=== PATIENT | female | born 2000 | race Caucasian/White ===

== ENCOUNTER 2025-07-27 14:19 | Inpatient (IN) ==
[2025-07-27 16:46] LABS: Protein Creatinine Ratio Urine 0.4 (0-0.2); Total Protein Urine Random 13.0 mg/dl (0-11.9)
--- NOTE | 2025-07-27 16:53 | History & Physical Report ---
Date of Service July 27, 2025 Assessment & Plan (1) Hypertension affecting in third trimester: (2) tachycardia affecting management of mother: Plan Patient is a 25yo who presented from office for prolonged monitoring for tachycardia at 39w0d. -FHT reassuring but noted to have persistent mild range blood pressures in triage -HELLP labs notable for elevated uric acid; P/C ratio 0.4 -Discussed concern for mild preeclampsia developing with mild range pressures and proteinuria, recommended admission to L&D for induction at this time since she is 39w0d with these findings -GBS in urine - will treat with vancomycin since has hives reaction to PCNs -RH pos, Rubella immune -Salgado balloon placed wth cvx 1.5/60/-2, will start pitocin 2x2 up to [address] -Epidural PRN -AROM when able -GDM- check BG q4 hours in latent labor History of Present Illness Chief Complaint: tachycardia Primary Care Provider: Neri Russell MD Patient is a 25yo who presented from the office for prolonged monitoring for tachycardia at 39w0d. Patient is feeling normal movement. She denies preeclampsia symptoms but notes increased swelling over past couple of weeks. Denies blood pressure concerns during this . She is feeling intermittent contractions. Scheduled for IOL 08/01. Allergies Allergy/AdvReac Type Severity Reaction Status Date / Time amoxicillin Allergy Intermediate Hives Verified 07/27/25 13:02 Home Medications Medication Instructions Recorded Confirmed Type albuterol sulfate inhalation Q4 PRN SOB 02/01/25 07/27/25 History 21-iron fu-folic acid 1 tab PO DAILY 02/01/25 07/27/25 History [ Complete] ondansetron 4 mg disintegrating 4 mg PO DAILY #30 tabs 03/08/25 07/27/25 Rx tablet acetone (urine) test (Ketone Urine #50 ea 05/29/25 07/27/25 Rx Test strips) blood sugar diagnostic (Accu-Chek #150 ea 05/29/25 07/27/25 Rx Guide test strips) blood-glucose meter (Accu-Chek #1 ea 05/29/25 07/27/25 Rx Guide Glucose Meter) lancets (Accu-Chek Softclix #150 ea 09/15/25 11/13/25 Rx Lancets) pen needle, diabetic 32 gauge x #50 ea 06/23/25 07/27/25 Rx /32" aspirin 81 mg chewable tablet 81 mg PO DAILY 07/27/25 07/27/25 History insulin NPH isoph U-100 human 100 15 unit subcut QPM 07/27/25 07/27/25 History unit/mL (3 mL) subcutaneous pen (Novolin N FlexPen) Patient History Medical History Varicella vaccination Plantar wart Asthma Surgical History S/P surgical removal of pilonidal cyst S/P tonsillectomy S/P wisdom tooth extraction Family History (Updated 02/01/25 @ 08:58 by Celina Szymanski) Family/Other Breast cancer first cousin Grandmother (Maternal) Stroke Grandfather (Maternal) Myocardial infarction Grandmother (Paternal) Duodenal cancer Grandfather (Paternal) Cancer Denies family history of Ovarian cancer Colorectal cancer Social History (Updated 02/01/25 @ 09:00 by Celina Szymanski) Smoking Status: Never smoker Tobacco Type: Cigarettes Second Hand Exposure: No; Do You Dip or Chew Tobacco: No; Hx Alcohol Use: No Hx Substance Use: No Preferred Language: Bengali Beliefs That Will Affect Care: None marital status: Single marital status details: hero Soni (24) [phone] Current Living Situation: Family Current Living Situation Comment: lives with mother and fiance current occupational status: employed current occupation: [employer] Other Information That Helps Us Care for You: No Feels Safe at Home: Yes Safety Concerns: Feels Safe At This Time Assistive Devices: None Review of Systems All systems reviewed & are unremarkable except as noted in HPI & below Physical Exam Constitutional: WD/WN, vitals as above Respiratory: normal respiratory effort Gastrointestinal (Abdomen): gravid uterus Psychiatric: Orientation: alert and oriented x 3 Genitourinary: Manual OB Exam: + cervical dilation 1 cm (1.5), + cervical effacement 60% and + station -2 OB Exam Monitor Tracing: + external FHT mon itor used, + external uterine monitor used (contractions q2-5 minutes) and + category I (Reactive and reassuring) Salgado balloon inserted in normal sterile fashion with cervical check above, with inflation of balloon with 40cc fluid. Pt tolerated well. Results & Data Vital Signs (Past 12 Hours) Vital Signs Temp Pulse Resp BP 07/27/25 16:20 83 146/83 H 07/27/25 16:04 75 134/81 07/27/25 15:49 75 138/87 07/27/25 15:35 89 148/83 H 07/27/25 15:19 78 156/85 H 07/27/25 14:40 36.9 C 16 07/27/25 14:33 96 H 142/83 H 07/27/25 14:27 100 H 187/94 H Laboratory Results Laboratory Results - last 24 hr 07/27/25 07/27/25 16:11 16:47 WBC 14.38 H RBC 4.45 Hgb 13.2 Hct 39.1 MCV 87.9 MCH 29.7 MCHC 33.8 RDW Std Deviation 48.5 H RDW Coeff of Behzad 15.4 H Plt Count 200 MPV 11.1 Immature Gran % (Auto) 1.7 Neut % (Auto) 75.1 Lymph % (Auto) 14.9 Foard % (Auto) 7.2 Eos % (Auto) 0.9 Baso % (Auto) 0.2 Neut # (Auto) 10.81 H Lymph # (Auto) 2.14 Foard # (Auto) 1.03 H Eos # (Auto) 0.13 Baso # (Auto) 0.03 Immature Gran # (Auto) 0.24 H Sodium 138 Potassium 4.4 Chloride 109 H Carbon Dioxide 23 Anion Gap 6 BUN 9 Creatinine 0.77 Est Cr Clr Drug Dosing 170.4 eGFR 110.40 BUN/Creatinine Ratio 11.7 Glucose 60 L Uric Acid 7.4 H Calcium 9.3 Total Bilirubin 0.5 AST 16 ALT 12 Alkaline Phosphatase 135 H Lactate Dehydrogenase 159 Total Protein 6.7 Albumin 3.5 Globulin 3.2 Albumin/Globulin Ratio 1.1 Ur Random Creatinine 29.1 U Random Total Protein 13.0 H Protein/Creatinin Ratio 0.4 H Coding Level of Care Code None Diagnoses Hypertension affecting in third trimester O16.3 tachycardia affecting management of mother O36.8383
[2025-07-27 17:20] LABS: Hematocrit (blood only) 39.1 % (37.0-47.0); Hemoglobin 13.2 g/dL (12.0-16.0); Immature Granulocytes # (auto) 0.24 K/uL (0.01-0.20); Immature Granulocytes % (auto) 1.7 %; Mean Corpuscular Hemoglobin 29.7 pg (25.0-34.0); Mean Corpuscular Volume 87.9 fL (80.0-100.0); Platelet Count 200 K/uL (130-400); RDW Standard Deviation 48.5 fL (36.4-46.3); Red Blood Count 4.45 M/uL (4.20-5.40); White Blood Count 14.38 K/ul (4.8-10.8)
[2025-07-27 17:37] LABS: Alanine Aminotransferase 12.0 U/L (7-52); Albumin Globulin Ratio 1.1 (0.9-2); Albumin Level 3.5 gm/dl (3.4-5.0); Alkaline Phosphatase 135.0 U/L (34-104); Anion Gap 6.0 (3-11); Bilirubin,Total 0.5 mg/dl (0.2-1.0); Blood Urea Nitrogen 9.0 mg/dl (6-23); Calcium 9.3 mg/dl (8.6-10.3); Carbon Dioxide 23.0 mmol/L (21-32); Chloride 109.0 mmol/L (98-107); Creatinine Clr Calc Pharmacy 170.4 ml/min; Globulin 3.2 gm/dl (2.5-4.0); Glucose 60.0 mg/dl (70-99(Fasting)); Potassium 4.4 mmol/L (3.5-5.1); Sodium 138.0 mmol/L (136-145); Total Protein 6.7 gm/dl (6.0-8.3); Uric Acid 7.4 mg/dl (2.6-7.2)
[2025-07-27] MEDS ORDERED: LIDOCAINE 1% LOCAL 20 ML VIAL INFIL PRN (17:46)
[2025-07-27] MEDS ORDERED: CALCIUM CARBONATE 500 MG CHEWABLE TAB PO PRN (17:46)
[2025-07-27] MEDS ORDERED: VANCOMYCIN CONSULT ACTIVE PRN (17:49)
[2025-07-27] MEDS: VANCOMYCIN HCL / NSS 1,000 MG/270 ML BAG IV STA (18:43)
[2025-07-27] MEDS: LACTATED RINGER'S 1,000 ML IV PRN (18:43)
[2025-07-27 19:02] LABS: Hematocrit (blood only) 40.3 % (37.0-47.0); Hemoglobin 13.6 g/dL (12.0-16.0); Mean Corpuscular Hemoglobin 29.3 pg (25.0-34.0); Mean Corpuscular Volume 86.9 fL (80.0-100.0); Platelet Count 202 K/uL (130-400); RDW Standard Deviation 48.1 fL (36.4-46.3); Red Blood Count 4.64 M/uL (4.20-5.40); White Blood Count 14.11 K/ul (4.8-10.8)
[2025-07-27 20:48] LABS: Amphetamines+Metham, Urine Neg (Neg); MDMA (Ecstacy), Urine Neg (Neg); Marijuana, Urine Pos (Neg)
[2025-07-27] MEDS: OXYTOCIN 30 UNITS/NSS 30 UNITS/500 ML BAG IV PRN (21:52)
--- NOTE | 2025-07-28 00:23 | Labor Progress Brief Note ---
Date of Service July 28, 2025 Subjective Doing well. Salgado balloon recently came out when patient was up to use the restroom. Wants to get epidural after AROM. Review of Systems All systems reviewed & are unremarkable except as noted in HPI & below Assessment & Plan (1) Hypertension affecting in third trimester: Plan Pt is a 25yo who is admitted for induction of labor in the setting of newly diagnosed mild preeclampsia. Doing well, BPs normotensive to mild range. s/p AROM Desires epidural Continue pitocin titration 2x2 and position changes Anticipate Admission and Anticipated Discharge Date Admission Date: July 27, 2025 Physical Exam Constitutional: WD/WN, vitals as above Respiratory: normal respiratory effort Psychiatric: Orientation: alert and oriented x 3 Genitourinary: normal external appearance Manual OB Exam: + cervical dilation 5 cm, + cervical effacement 80%, + station -2 and + amniotic fluid clear OB Exam Monitor Tracing: + scalp electrode used, + external uterine monitor used and + category I AROM performed in normal sterile fashion with cervix check above, head well applied to the cervix. Return of clear fluid. scalp electrode placed due to difficulty with external FHT monitoring. Pt tolerated well. Results & Data Vital Signs (Past 12 Hours) Vital Signs Temp Pulse Resp BP 07/27/25 23:26 69 07/27/25 23:26 120/57 L 07/27/25 23:00 20 07/27/25 23:00 36.8 C 20 07/27/25 22:26 70 07/27/25 22:26 140/78 07/27/25 21:56 72 07/27/25 21:56 141/78 H 07/27/25 19:12 36.7 C 20 07/27/25 19:12 20 07/27/25 19:12 36.7 C 20 07/27/25 19:04 81 07/27/25 19:04 144/71 H 07/27/25 18:19 90 07/27/25 18:19 135/85 07/27/25 17:51 98 H 197/97 H 07/27/25 17:34 69 141/83 H 07/27/25 17:19 67 138/73 07/27/25 17:04 77 136/76 07/27/25 16:20 83 146/83 H 07/27/25 16:04 75 134/81 07/27/25 15:49 75 138/87 07/27/25 15:35 89 148/83 H 07/27/25 15:19 78 156/85 H 07/27/25 14:40 36.9 C 16 07/27/25 14:33 96 H 142/83 H 07/27/25 14:27 100 H 187/94 H Coding Level of Care Code None Diagnoses Hypertension affecting in third trimester O16.3
--- NOTE | 2025-07-28 00:35 | Anesthesiology Consultation ---
Date of Service July 28, 2025 Assessment & Plan Chart Review Chart Review: Acceptable Risk for Labor Epidural Consults Requested none History Height/Weight Height: 5 ft 9 in Weight: 140.16 kg Allergies Allergy/AdvReac Type Severity Reaction Status Date / Time amoxicillin Allergy Intermediate Hives Verified 07/27/25 13:02 Medications Home Medications Medication Instructions Recorded Confirmed Last Taken albuterol sulfate inhalation Q4 PRN SOB 02/01/25 07/27/25 2 Weeks Ago ~07/13/25 21-iron fu-folic acid 1 tab PO DAILY 02/01/25 07/27/25 1 Day Ago [ Complete] ~07/26/25 ondansetron 4 mg disintegrating 4 mg PO DAILY #30 tabs 03/08/25 07/27/25 2 Weeks Ago tablet ~07/13/25 acetone (urine) test (Ketone Urine #50 ea 05/29/25 07/27/25 Unknown Test strips) blood sugar diagnostic (Accu-Chek #150 ea 05/29/25 07/27/25 Unknown Guide test strips) blood-glucose meter (Accu-Chek #1 ea 05/29/25 07/27/25 Unknown Guide Glucose Meter) lancets (Accu-Chek Softclix #150 ea 05/29/25 07/27/25 Unknown Lancets) pen needle, diabetic 32 gauge x #50 ea 06/23/25 07/27/25 Unknown " aspirin 81 mg chewable tablet 81 mg PO DAILY 07/27/25 07/27/25 1 Day Ago ~07/26/25 insulin NPH isoph U-100 human 100 15 unit subcut QPM 07/27/25 07/27/25 1 Day Ago unit/mL (3 mL) subcutaneous pen ~07/26/25 (Novolin N FlexPen) Active Medications Generic Name Dose Route Start Last Admin Trade Name Freq PRN Reason Stop Dose Admin Lactated Ringer's 1,000 mls @ 125 mls/hr 07/27/25 17:46 07/27/25 18:43 Lr IV 07/29/25 17:45 125 mls/hr .Q8H PRN Administration L&D Protocol Protocol Oxytocin 30 units in 500 mls @ 6 mls/hr 07/27/25 17:49 07/27/25 23:25 Pitocin 30 Units/Nss IV 07/29/25 17:48 0.36 units/hr .Q24H PRN 6 mls/hr Labor Induction/Augmentation Titration Protocol 0.36 UNITS/HR Past Medical History Medical History Varicella vaccination Plantar wart Asthma Past Family History Family History (Updated 02/01/25 @ 08:58 by Celina Szymanski) Family/Other Breast cancer first cousin Grandmother (Maternal) Stroke Grandfather (Maternal) Myocardial infarction Grandmother (Paternal) Duodenal cancer Grandfather (Paternal) Cancer Denies family history of Ovarian cancer Colorectal cancer Past Surgical History Surgical History S/P surgical removal of pilonidal cyst S/P tonsillectomy S/P wisdom tooth extraction Social History Smoking Status: Never smoker Do You Dip or Chew Tobacco: No Hx Alcohol Use: No Hx Substance Use: No Physical Exam Vital Signs Last Vital Signs Temp 36.8 C 07/27/25 23:00 Pulse 86 07/28/25 00:27 Resp 20 07/27/25 23:00 BP 131/76 07/28/25 00:27 Testing Laboratory Results 07/27/25 18:35 07/27/25 16:47 Blood Type A Positive 07/27/25 18:35 Antibody Screen NEGATIVE 07/27/25 18:35 07/27/25 07/27/25 23:04 19:37 POC Glucose 76 75
[2025-07-28] MEDS ORDERED: ROPIVACAINE 0.5% PF 5 MG/ML 20 ML VIAL EPI PRN (00:36)
[2025-07-28] MEDS ORDERED: BUPIVACAINE 0.25% PF 30 ML VIAL EPI PRN (00:36)
[2025-07-28] MEDS ORDERED: diphenhydrAMINE 50 MG/ML VIAL IV PRN (00:36)
[2025-07-28] MEDS ORDERED: NALBUPHINE HCL INJ 10 MG/ML AMP IV PRN (00:36)
[2025-07-28] MEDS ORDERED: SODIUM CHLORIDE 0.9% PF INJ 10 ML VIAL EPI PRN (00:36)
[2025-07-28] MEDS ORDERED: NALOXONE HCL 0.4 MG/1 ML VIAL/CARP IV PRN (00:36)
[2025-07-28] MEDS ORDERED: NALOXONE HCL 1 MG in SODIUM CHLORIDE 0.9% 1,000 ML IV PRN (00:36)
[2025-07-28] MEDS ORDERED: LIDOCAINE 2% MPF LOCAL 5 ML VIAL EPI PRN (00:36)
[2025-07-28] MEDS: fentANYL 2 MCG/ML BUPIVacaine 0.125%-NSS 100ML BAG EPI PRN (01:19)
[2025-07-28] MEDS: LIDOCAINE 2%/EPINEPHRINE 1:200,000 20 ML PF EPI STA (01:22)
[2025-07-28] MEDS: BUPIVACAINE 0.25% PF 30 ML VIAL EPI STA (01:22)
[2025-07-28] MEDS: LIDOCAINE 2%/EPINEPHRINE 1:200,000 20 ML PF ONE (01:31)
[2025-07-28] MEDS: BUPIVACAINE 0.25% PF 30 ML VIAL ONE (01:31)
[2025-07-28] MEDS: SODIUM CHLORIDE 0.9% PF INJ 10 ML VIAL ONE (01:31)
[2025-07-28] MEDS: fentANYL 2 MCG/ML BUPIVacaine 0.125%-NSS 100ML BAG ONE (01:31)
[2025-07-28] MEDS: SODIUM CHLORIDE 0.9% PF INJ 10 ML VIAL EPI STA (01:31)
[2025-07-28] MEDS: VANCOMYCIN HCL / NSS 1,000 MG/270 ML BAG IV PRN (06:14)
--- NOTE | 2025-07-28 06:33 | Anesthesia Procedure Note ---
Date of Service July 28, 2025 Anesthesia Epidural Re-Dose Vital Signs Temp Pulse Resp BP Pulse Ox 36.7 C 87 20 135/89 95 07/28/25 06:10 07/28/25 06:31 07/28/25 06:10 07/28/25 06:31 07/28/25 06:27 Notes Pain Intensity: 8 Dilatation (cm): 8.0 Effacement (%): 90 Called by nursing to evaluate epidural as the patient is having increased pain. The epidural was re-dosed with the following medications (all medications via epidural route) after negative aspiration of the epidural catheter for CSF/HEME. 2% lidocaine 5ml with fentanyl 100mcg. After Epidural Re-Dose Mental Status: alert / awake / arousable Pain: improving with treatment Airway Patency, RR, SpO2: stable & adequate BP & HR: stable & adequate
[2025-07-28] MEDS ORDERED: NURSING L&D Epidural Breakthrough Pain Update ONE (06:48)
--- NOTE | 2025-07-28 10:48 | Delivery Summary ---
Vaginal Delivery Summary Date of Service July 28, 2025 Vaginal Delivery Summary and 2nd Degree LAC Spontaneous vaginal delivery the patient was induced by Dr. Hendrix the day before for preeclampsia after signout she was fully dilated and pushing at with epidural. She delivered a baby in occiput anterior position after delivery of the head there was no nuchal cord fluid appeared clear gentle traction on the baby released the anterior shoulder and baby was delivered without excessive force live vigorous female Cord clamped and cut cord blood obtained placenta removed with traction IV Pitocin started small second-degree tear repaired with 3-0 Vicryl sponge and instrument counts correct QBL 200 mL [facility] Vaginal Delivery Charge Delivery Type Details: and 2nd Degree LAC
[2025-07-28] MEDS: OXYTOCIN 30 UNITS/NSS 30 UNITS/500 ML BAG IV PRN (11:00)
--- NOTE | 2025-07-28 11:17 | Anesthesia Procedure Note ---
Date of Service July 28, 2025 Anesthesia Post Epidural Note Vital Signs Vital Signs: Temp Pulse Resp BP Pulse Ox O2 Del Method 97.9 F 115 H 20 128/73 98 Room Air 07/28/25 10:10 07/28/25 11:12 07/28/25 06:10 07/28/25 11:01 07/28/25 11:12 07/28/25 07:00 Pain Intensity Abdomen: Pain Intensity: 0 Notes Mental Status: alert / awake / arousable and participated in evaluation Nausea / Vomiting: adequately controlled Pain: adequately controlled Airway Patency, RR, SpO2: stable & adequate BP & HR: stable & adequate Hydration State: stable & adequate Neuraxial Anesthesia: was administered and sensory block is resolving Anesthetic Complications: no major complications apparent and Pt Satisfied with anesthetic care Epidural: Removed without complications and With tip intact
[2025-07-28] MEDS ORDERED: HYDROCORTISONE ACETATE 25 MG SUPP PR PRN (11:19)
[2025-07-28] MEDS ORDERED: BENZOCAINE 20% SPRY 85 APPLN/85 GM CAN EXT PRN (11:19)
[2025-07-28] MEDS ORDERED: OXYTOCIN 30 UNITS/NSS 30 UNITS/500 ML BAG IV PRN (11:19)
[2025-07-28] MEDS ORDERED: IBUPROFEN 600 MG TAB PO PRN (11:19)
[2025-07-28] MEDS: ACETAMINOPHEN 325 MG TAB PO PRN (15:20)
[2025-07-28] MEDS: DOCUSATE SODIUM 100 MG CAP PO SCH (21:01)
[2025-07-28 23:47] VITALS: RESP 18
--- NOTE | 2025-07-29 07:48 | Obstetrical Progress Note ---
Date of Service July 29, 2025 Assessment & Plan (1) care following vaginal delivery: Plan 25 yo post- day 1 s/p Feels well today. Vital signs stable Continue post- care Encourage ambulation and Pain controlled with ibuprofen Hgb stable Discharge home today, follow up with Dr. Munson in 6 weeks. Admission and Anticipated Discharge Date Admission Date: July 27, 2025 Supervising Physician Co-Signing Physician Notes Resident Physician Supervision Note: I interviewed and examined the patient. Discussed with Dr. Gomez and agree with findings and plan as documented in the note. Any exceptions or clarifications are listed here: [None] Documented By: Josiane Munson MD, FACOG Subjective 25 yo post- day 1 s/p Ambulation: ambulating normally Voiding: no voiding problems Passing Gas:: Yes Passing Stool:: Yes Diet Tolerance:: regular diet Lochia:: Small Feeding Type:: breast feeding Current Pain Level: 3 Resting comfortably this AM in NAD. Denies NAGY, CP, SOB, N/V/D, LE pain/swelling. Review of Systems Review of Systems: All systems reviewed & are unremarkable except as noted in HPI & below Physical Exam Physical Exam: General: patient resting comfortably, NAD, non-toxic in appearance, AA&O x 4, answers questions appropriately. Skin: warm, dry, intact HEENT: NC/AT, anicteric sclera, conjunctiva without injection, moist mucus membranes. Heart: +S1/S2, regular, no m/r/g Lungs: equal air entry bilaterally, no rales/rhonchi/wheezes Abd: +BS, soft, NT/ND, uterine fundus firm 1 FB below umbilicus Ext: warm, no clubbing/cyanosis or edema, Odalis's neg. Neuro: nonfocal, patient AA&O x 4, speech intact, no facial droop, moving all extremities on command. Results & Data Vital Signs (Past 12 Hours) Vital Signs Temp Pulse Resp BP Pulse Ox O2 Del Method 07/29/25 03:26 36.3 C L 67 18 127/84 98 Room Air 07/28/25 23:40 36.9 C 88 18 135/87 99 Room Air Laboratory Results OB Labs: Blood Type A Positive 02/09/25 Antibody Screen NEGATIVE 02/09/25 Hgb 12.7 g/dl (12.0-16.0) 05/12/25 Hct 38.1 % (37.0-47.0) 05/12/25 MCV 85.7 fL (80.0-100.0) 02/09/25 Plt Count 235 K/uL (130-400) 02/09/25 Rubella IgG Antibody Immune (Immune) 02/09/25 Treponema pallidum Ab Negative (Negative) 05/12/25 Hep Bs Antigen Negative (Negative) 02/09/25 Hepatitis C Antibody Negative (Negative) 02/09/25 HIV 1&2 Ab/P24 Ag 4thGn Negative (Negative) 02/09/25 Glucose 1 Hr 50 gm 167 mg/dl (70-130) H 05/12/25 OB Optional Labs: Chlamydia trachomatis RNA Not Detected (NotDetected) 02/09/25 Neisseria gonorrhoeae RNA Not Detected (NotDetected) 02/09/25 Resident Activity Tracking Resident Involvement: Resident Care Provided Care Provided: OB Delivery
[2025-07-29 07:59] LABS: Hematocrit (blood only) 33.9 % (37.0-47.0); Hemoglobin 11.5 g/dL (12.0-16.0); Mean Corpuscular Hemoglobin 29.6 pg (25.0-34.0); Mean Corpuscular Volume 87.4 fL (80.0-100.0); Platelet Count 183 K/uL (130-400); RDW Standard Deviation 49.4 fL (36.4-46.3); Red Blood Count 3.88 M/uL (4.20-5.40); White Blood Count 14.04 K/ul (4.8-10.8)
[2025-07-29] MEDS: PRENATAL VITAMIN 1 TAB PO SCH (08:44)
[2025-07-29] MEDS: DIPHTHER/TETAN/PERTUS Vaccine (Tdap, Adol/Adult) 0.5mL IM ONE (14:02)
[2025-07-29 17:49] VITALS: BP 133/88; PULSE 72; TEMP 98.4; O2SAT 100
== END 2025-07-29 18:12 | disposition home or self-care (01) | DRG 806 ==
LOC: OPB 14:19 → 4S1 14:22 → 4E2 07-28 13:40
DX: O70.1 Second degree perineal laceration during delivery; Z88.0 Allergy status to penicillin; Z37.0 Single live birth; Z3A.39 39 weeks gestation of pregnancy; O14.04 Mild to moderate pre-eclampsia, complicating childbirth; Z79.82 Long term (current) use of aspirin; O76 Abnormality in fetal heart rate and rhythm complicating labor and delivery; Z79.899 Other long term (current) drug therapy; O98.82 Other maternal infectious and parasitic diseases complicating childbirth; B95.1 Streptococcus, group B, as the cause of diseases classified elsewhere; Z79.4 Long term (current) use of insulin